=== PATIENT | male | born 1955 ===

== ENCOUNTER 2020-10-07 09:26 | Emergency (ER) | payer OTHER, SELFPAY ==
[2020-10-07 09:34] VITALS: BP 163/85; PULSE 62; RESP 16; TEMP 36.8; O2SAT 96; BMI 24.0
[2020-10-07 09:43] VITALS: PULSE 74
--- NOTE | 2020-10-07 09:46 | XRR_ITS ---
PROCEDURE INFORMATION: Exam: XR Left Hand Exam date and time: 10/07/2020 9:57 AM Age: 65 years old Clinical indication: Injury or trauma; Other: Laceration from saw; Hand; Left; Injury date: 10/07/20; Additional info: Laceration to fingers from saw TECHNIQUE: Imaging protocol: XR Left hand. Views: 3 or more views. COMPARISON: No relevant prior studies available. FINDINGS: Bones/joints: There is soft tissue laceration at the tip of the thumb. There is comminuted fracture of the tuft of the distal phalanx of the thumb with up to 5 mm of displacement of minute fracture fragments. There is also soft tissue laceration along the lateral aspect of the distal portion of the index finger. There are minute flecks of density in the soft tissues which may represent small amount of debris. XR/XR hand LT min 3V* [id number] IMPRESSION: 1. Soft tissue laceration of the tip of the thumb with comminuted fracture of the tuft and about 5 mm of maximum displacement. 2. Soft tissue laceration of the distal end of the index finger but no significant bone or joint abnormality seen in the index finger. Minute flecks of density in the soft tissues consistent with a small amount of debris.
--- NOTE | 2020-10-07 09:58 | W.ED.EXTPRO ---
HPI - Extremity Problem General: Chief complaint: Extremity Injury, Upper Stated complaint: wound/laceration to fingers Time Seen by Provider: 10/07/20 09:47 History of Present Illness: HPI Narrative: Patient is a 65-year-old male who comes to the ED with a laceration to hand. Patient was at work using a chainsaw and cut left index finger and left thumb. He reports minimal pain. Patient is unsure of last tetanus shot. Associated symptoms: Deny chest pain, fever(s) or rash Review of Systems Const: Denies: fever(s), chills or fatigue Eyes: Denies: change in vision or eye discomfort ENMT: Denies: throat pain, odynophagia, nasal discharge or nasal congestion Card: Denies: chest pain, palpitations, edema, swelling of feet/ankles, dyspnea on exertion or orthopnea Resp: Denies: dyspnea, productive cough or non-productive cough GI: Denies: abdominal pain, nausea, vomiting, diarrhea, constipation or hematochezia : Denies: flank pain, difficulty urinating, dysuria or hematuria Musc: Denies: neck pain, back pain or extremity swelling Skin/Breast: Reports: new lesions (Laceration to left thumb and left index finger.); Denies: rash Neuro: Denies: headache(s), numbness in extremities or weakness in extremities Physical Exam Const: COMMON NORMALS: no acute distress, patient oriented x3, healthy appearing and alert GENERAL APPEARANCE: cooperative and comfortable HENMT: COMMON NORMALS: normocephalic HEAD & SCALP: normocephalic MOUTH: Normal oral and palatal mucosa present THROAT: posterior oropharynx normal and uvula midline Neck/C-Spine: COMMON NORMALS: supple GENERAL: Yes normal visual inspection Resp: COMMON NORMALS: normal respiratory effort, No retractions, No use of accessory muscles and clear to auscultation bilaterally AUSCULTATION: clear to auscultation bilaterally Cardio: COMMON NORMALS: regular rate, regular rhythm, S1 normal heart sound present, S2 normal heart sound present, No gallops present (Cardio), No clicks present (Cardio), No murmurs present (Cardio) and Peripheral pulses 2+ throughout RATE: regular rate RHYTHM: regular rhythm HEART SOUNDS: S1 normal heart sound present and S2 normal heart sound present PERIPHERAL PULSES: Peripheral pulses 2+ throughout GI: COMMON NORMALS: Normal to inspection, nondistended, normoactive bowel sounds present, Soft to palpation, non-tender and no masses PALPATION: Yes Soft to palpation : COMMON NORMALS: Yes no CVA tenderness BLADDER/KIDNEY EXAM: Yes no CVA tenderness Back/Pelvis: COMMON NORMALS: no CVA tenderness Extremity: NARRATIVE EXTREMITY EXAM: Left hand?first digit?nailbed laceration with damage to nail. Laceration approximately 1 cm. Second digit- 1.5 cm irregular shaped laceration to tip of index finger. No damage to nail bed. GENERAL: Yes normal exam except as noted LEFT UPPER EXTREMITY: Yes hand & digits Neuro: COMMON NORMALS: patient oriented x3 and moves all extremities SENSORIUM/ORIENTATION: Yes alert Skin: COMMON NORMALS: no rashes or lesions noted NARRATIVE SKIN EXAM: See extremity section of exam for details of laceration to left hand. GENERAL SKIN EXAM: no rashes or lesions noted Procedures Laceration Laceration 1: Site: hand (thumb) Side (If applicable): left Size (cm): 1 Description: irregular (Irregular laceration that involves the nailbed and distal tip of thumb) Depth: simple, single layer Local Anesthetic: lidocaine 2% (Digital block) Amount of anesthesia used (mL): 10 Pre-repair: irrigated extensively (With normal saline.) Skin layer closed with: nylon Size (cm): 4-0 Number of sutures: 7 Technique: simple, interrupted Laceration 2: Site: hand (2nd digit) Side (If applicable): left Size (cm): 1.5 Description: irregular Depth: simple, single layer Local Anesthetic: lidocaine 2% (digital block) Amount of anesthesia used (mL): 10 Pre-repair: irrigated extensively (With normal saline) Skin layer closed with: nylon Size (cm): 4-0 Number of sutures: 3 Technique: simple, interrupted Nerve Block Nerve Block 1: Time out performed: Yes Local Anesthetic: lidocaine 2% Amount of anesthesia used (mL): 10 Side: left Nerve Blocks: digital (1st digit) Procedure Successful: Yes Patient Tolerated Procedure: well Complications: none Nerve Block 2: Time out performed: Yes Local Anesthetic: lidocaine 2% Amount of anesthesia used (mL): 10 Side: left Nerve Blocks: digital (2nd digit) Procedure Successful: Yes Patient Tolerated Procedure: well Complications: none Course Vital Signs: Vital signs: Vital Signs Temperature 98.3 F 10/07/20 09:34 Pulse Rate 71 04/19/21 12:03 Respiratory Rate 16 10/07/20 12:03 Blood Pressure 162/80 10/07/20 12:03 Pulse Oximetry 98 10/07/20 12:03 MDM - Extremity (Nontraumatic) MDM Narrative: Medical decision making narrative: Patient is a 65-year-old male who comes to the ED with with laceration to left thumb and index finger. Patient cut his finger with a chainsaw. Exam findings left hand?thumb is 1 cm irregular laceration to the nailbed and tip of thumb. Most of nail has been removed. Patient also has an irregular 1.5 cm laceration on second digit of the left hand as well. X-ray shows a comminuted fracture of the tuft of thumb. Patient's lacerations were irrigated extensively with normal saline. A digital block was used on his first and second digit with lidocaine 2%. 7 sutures were used to close nailbed laceration anterior restructure and close up tip of thumb. 3 sutures were placed to close laceration on index finger. Lacerations were then bandaged and a splint was put on patient's thumb. I placed an order with case management for patient to be referred to orthopedic doctor. Patient was given updated tetanus while here in the ED as well. Patient diagnosed with laceration to nailbed of finger, laceration to finger of left hand and fracture of distal phalanx of thumb. He was discharged home with and sent with the prophylactic prescription of Keflex. Return to ED precautions given. He was instructed on suture care and when to return and have sutures removed. I filled out and signed Worker's Comp. paperwork. Patient understood agree with plan. Imaging Data^: Xray Ortho: Attestation: I personally reviewed and interpreted this imaging study as follows: Radiologist's impression: [facility] [address] [place] [address] XRay Report Signed Patient: Reji Ortiz Unit #: [id number] : 1955 Age/Sex: 65 / M ADM Date: 10/07/20 Loc: ER Room/Bed: Attending Dr: Ordering Provider/Ordering MD: Reynaldo Key Date of Service: 10/07/20 Procedure(s): XR hand LT min 3V* [id number] Accession Number(s): [id number] Report Number: [id number] PROCEDURE INFORMATION: Exam: XR Left Hand Exam date and time: 10/07/2020 9:57 AM Age: 65 years old Clinical indication: Injury or trauma; Other: Laceration from saw; Hand; Left; Injury date: 10/07/20; Additional info: Laceration to fingers from saw TECHNIQUE: Imaging protocol: XR Left hand. Views: 3 or more views. COMPARISON: No relevant prior studies available. FINDINGS: Bones/joints: There is soft tissue laceration at the tip of the thumb. There is comminuted fracture of the tuft of the distal phalanx of the thumb with up to 5 mm of displacement of minute fracture fragments. There is also soft tissue laceration along the lateral aspect of the distal portion of the index finger. There are minute flecks of density in the soft tissues which may represent small amount of debris. XR/XR hand LT min 3V* [id number] IMPRESSION: 1. Soft tissue laceration of the tip of the thumb with comminuted fracture of the tuft and about 5 mm of maximum displacement. 2. Soft tissue laceration of the distal end of the index finger but no significant bone or joint abnormality seen in the index finger. Minute flecks of density in the soft tissues consistent with a small amount of debris. Dictated By: Reginald Fortune Signed By: Reginald Fortune Signed Date/Time: 10/07/20 1017 DD/ 1016 Discharge Plan Discharge Patient Disposition: Home Clinical Impression: Fracture of distal phalanx of finger Qualifiers: Encounter type: initial encounter Finger: thumb Fracture type: open Fracture alignment: displaced Laterality: left Qualified Code(s): S62.522B - Displaced fracture of distal phalanx of left thumb, initial encounter for open fracture Laceration of finger nail bed Qualifiers: Encounter type: initial encounter Qualified Code(s): S61.319A - Laceration without foreign body of unspecified finger with damage to nail, initial encounter Laceration of finger of left hand Qualifiers: Encounter type: initial encounter Finger: index finger Damage to nail status: without damage Foreign body presence: without foreign body Qualified Code(s): S61.211A - Laceration without foreign body of left index finger without damage to nail, initial encounter Condition: Stable Prescriptions: New cephalexin 500 mg capsule 500 mg PO Q6H 7 Days Qty: 28 RF: 0 Discharge Orders: Discharge ED (Routine); Ordered 10/07/20 Ordered By: Reynaldo Key Discharge Diet: Regular Discharge Activity: Limit activity as instructed Patient Instructions: Fractures - Phalanx (Finger), Finger Laceration (ED) Activity Restrictions/Additional Instructions: Take full course of antibiotics as prescribed. Keep laceration site clean and dry for the next 48 hours. Then after that you can clean and re-bandage daily. Watch for signs of infection such as redness, warmth, increased tenderness and puslike drainage. If you see the signs of infection return to the ED, urgent care or PCP for reevaluation. call your PCP to schedule a follow-up appointment for reevaluation and suture removal in about 7- 10 days. Wear finger splint on left thumb and case management will be contacting you in the next several days to set up an appointment with orthopedic doctor. Continue taking all home meds. Follow discharge plans as discussed. You can return to the ED if symptoms worsen. Coding Level of Care Code ED Rn Critical Care for Jacques Fwhilda Exam Comprehensive
[2020-10-07] MEDS: tetanus-dipt-pertussis 0.5 mL SDV IM (10:33)
[2020-10-07] MEDS: lidocaine 2% INJ 20 mL INJECTION (10:34)
[2020-10-07 12:03] VITALS: BP 162/80; PULSE 71; RESP 16; O2SAT 98
--- NOTE | 2020-10-09 15:17 | DCPLANNER ---
intervention manager had message to schedule a follow up appointment for patient with ortho. intervention manager called the ortho clinic, spoke with Eliza, gave clinic patients information. intervention manager was told that patients information would be printed and reviewed. Clinic will call patient with appointment information.
--- NOTE | 2020-10-15 09:42 | DCPLANNER ---
civil engineering manager called the ortho clinic, spoke with Eliza to confirm if a follow up appointment had been scheduled for patient. civil engineering manager was told that patient followed up with Dr. Case and was referred to wound care.
== END 2020-10-07 14:16 | disposition home or self-care (01) ==
PROVIDERS: Emergency Provider Physician Assistant
DX: S62.522B Displaced fracture of distal phalanx of left thumb, initial encounter for open fracture (principal); S61.211A Laceration without foreign body of left index finger without damage to nail, initial encounter; W29.3XXA Contact with powered garden and outdoor hand tools and machinery, initial encounter; Y99.0 Civilian activity done for income or pay; Z23 Encounter for immunization
CPT/HCPCS: 12001; 73130; 90471; 90715; 99283